=== PATIENT | male | born 1945 | race Two or more races ===

== ENCOUNTER 2022-03-21 02:14 | Emergency (ER) | payer MEDICARE, SELFPAY ==
[2022-03-21 02:21] VITALS: BP 145/84
[2022-03-21 03:45] LABS: RSV AMPLIFICATION NEGATIVE (NEGATIVE)
== END 2022-03-21 06:20 | disposition expired ==
LOC: M ED 02:14 → EDBD 02:14 → M ED 06:20
DX: I46.9 Cardiac arrest, cause unspecified (principal)

== ENCOUNTER → 2022-03-21 | Outpatient (REF) | LOC: M LAB 09:40 ==